=== PATIENT | male | born 1960 | race Caucasian/White ===

== ENCOUNTER 2022-05-11 16:13 | Outpatient (CLI) | payer BC ==
[2022-05-11 16:32] LABS: PT - PROTHROMBIN TIME 11.2 secs (9.9-12.6)
[2022-05-11 16:46] LABS: ALBUMIN 3.7 g/dL (3.2-5.5); CALCIUM 9.3 mg/dL (8.5-10.3); CREATININE 0.8 mg/dL (0.6-1.2); POTASSIUM 3.9 mmol/L (3.5-5.0); TOTAL PROTEIN 7.5 g/dL (6.7-8.2)
== END 2022-05-11 16:14 | disposition home or self-care (01) ==
LOC: LAB 16:13
PROVIDERS: ATTEND Nurse Practitioner
DX: B17.2 Acute hepatitis E (principal)
CPT/HCPCS: 36415; 80053; 85610

== ENCOUNTER 2022-05-19 16:34 | Outpatient (CLI) | payer BC | END 2022-05-19 16:35 | disposition home or self-care (01) | LOC: LAB 16:34 | PROVIDERS: ATTEND Nurse Practitioner | DX: R79.89 Other specified abnormal findings of blood chemistry (principal) | CPT/HCPCS: 81599 ==

== ENCOUNTER 2022-06-19 15:34 | Outpatient (CLI) | payer BC ==
[2022-06-19 16:08] LABS: ALBUMIN 3.7 g/dL (3.2-5.5); BILIRUBIN,TOTAL 1.5 mg/dL (0.2-1.0); CALCIUM 9.4 mg/dL (8.5-10.3); CREATININE 0.9 mg/dL (0.6-1.2); POTASSIUM 4.2 mmol/L (3.5-5.0); TOTAL PROTEIN 7.4 g/dL (6.7-8.2)
== END 2022-06-19 15:35 | disposition home or self-care (01) ==
LOC: LAB 15:34
PROVIDERS: ATTEND Nurse Practitioner
DX: R79.89 Other specified abnormal findings of blood chemistry (principal)
CPT/HCPCS: 36415; 80053; 81599

== ENCOUNTER 2022-07-19 07:43 | Outpatient (CLI) | payer BC ==
[2022-07-19] MEDS ORDERED: LACTATED RINGERS 1,000 ML IV ONE ×2 (07:47→09:59)
[2022-07-19 08:24] LABS: HCT - HEMATOCRIT 43.5 % (42.0-52.0); HGB - HEMOGLOBIN 15.2 g/dL (14.0-18.0)
[2022-07-19 08:33] LABS: PT - PROTHROMBIN TIME 11.1 secs (9.9-12.6)
[2022-07-19] MEDS ORDERED: lidocaine 1% 20 ML MDV ONE (08:34)
[2022-07-19 08:40] LABS: PARTIAL THROMBOPLASTIN TIME 31.3 secs (24.9-33.3)
[2022-07-19] MEDS ORDERED: fentaNYL 100 MCG/2 ML VIAL ONE (08:41)
[2022-07-19] MEDS ORDERED: MIDAZOLAM 2 MG/2 ML VIAL ONE (08:41)
--- NOTE | 2022-07-19 11:20 | Ultrasound Report ---
PROCEDURE: Ultrasound-guided liver biopsy with sedation analgesia for 25 minutes. INDICATIONS: ELEVATED LFTS TECHNIQUE: The indications, alternatives, benefits, risks, and complications of the procedure were e xplained to the patient. Written informed consent was obtained and placed in the chart. Continuous EKG and hemodynamic monitoring was started by trained personnel. Real-time sonography was utilized to choose the site for percutaneous hepatic biopsy. The skin was p repped and draped in the usual sterile fashion. 1% lidocaine was infiltrated down to the hepatic cap manny. A coaxial needle was then advanced into the liver under direct sonographic visualization. A b Bridesidesy apparatus was then utilized, and core biopsies were obtained. The needle was then withdrawn; a bandage and overlying weight were applied to the biopsy site. COMPARISON: None. FINDINGS: Biopsy site(s): Anterior left lobe of the liver. Needle: Acesis biopsy needle set. Number of passes: 4 Medications: 1% lidocaine for local anaesthesia. IV Versed and Fentanyl for conscious sedation for 25 minutes (see nursing record). Complications: None. IMPRESSION: Ultrasound-guided liver biopsy, with pathology results pending. Reviewed by: Andrew Boland MD on 07/19/2022 11:19 AM PDT Approved by: nAdrew Boland MD on 07/19/2022 11:19 AM PDT Station ID: [id number]
[2022-07-19 14:01] VITALS: BP 137/87
== END 2022-07-19 07:44 | disposition home or self-care (01) ==
LOC: DI 07:43
PROVIDERS: ATTEND Nurse Practitioner
DX: R79.89 Other specified abnormal findings of blood chemistry (principal); K73.9 Chronic hepatitis, unspecified; K76.0 Fatty (change of) liver, not elsewhere classified
CPT/HCPCS: 36415; 47000; 85014; 85018; 85049; 85610; 85730; J7120; 85025

== ENCOUNTER 2022-08-16 15:37 | Outpatient (CLI) | payer BC ==
[2022-08-16 16:20] LABS: PT - PROTHROMBIN TIME 11.6 secs (9.9-12.6)
== END 2022-08-16 15:38 | disposition home or self-care (01) ==
LOC: LAB 15:37
PROVIDERS: ATTEND Nurse Practitioner
DX: R79.89 Other specified abnormal findings of blood chemistry (principal)
CPT/HCPCS: 36415; 85610

== ENCOUNTER 2022-08-22 15:39 | Outpatient (CLI) | payer BC ==
[2022-08-22 16:05] LABS: ALBUMIN 3.6 g/dL (3.2-5.5); ALBUMIN/GLOBULIN RATIO 1.1 (1.0-2.2); BILIRUBIN,TOTAL 0.7 mg/dL (0.2-1.0); CALCIUM 8.9 mg/dL (8.5-10.3); CREATININE 0.8 mg/dL (0.6-1.2); POTASSIUM 4.1 mmol/L (3.5-5.0); TOTAL PROTEIN 6.8 g/dL (6.7-8.2)
== END 2022-08-22 15:40 | disposition home or self-care (01) ==
LOC: LAB 15:39
PROVIDERS: ATTEND Nurse Practitioner
DX: R79.89 Other specified abnormal findings of blood chemistry (principal)
CPT/HCPCS: 36415; 80053

== ENCOUNTER 2023-02-05 11:01 | Outpatient (CLI) | payer OTHER ==
[2023-02-05 11:29] LABS: ALBUMIN 4.2 g/dL (3.2-5.5); BILIRUBIN,DIRECT 0.1 mg/dL (0.1-0.5); BILIRUBIN,TOTAL 0.7 mg/dL (0.2-1.0); TOTAL PROTEIN 7.9 g/dL (6.7-8.2)
[2023-02-08 10:09] LABS: HCV RNA QUANTITATION HCV Not Detected IU/mL (.)
== END 2023-02-05 11:02 | disposition home or self-care (01) ==
LOC: LAB 11:01
PROVIDERS: ATTEND Nurse Practitioner
DX: B18.2 Chronic viral hepatitis C (principal)
CPT/HCPCS: 36415; 80076; 87522